=== PATIENT | male | born 1940 | race African-American/Black ===

== ENCOUNTER 2019-04-09 20:01 | Emergency (ER) | payer OTHER ==
[~2019-04-09] VITALS: Ht 188 cm; Wt 89.8 kg
[~2019-04-09 20:01] MED LIST: CAPSAICIN; ENALAPRIL MALEA10 MG PO; FELODIPINE5 M1 PO; FINASTERIDE5 M1 PO; FLO4 PO; GLUCOSE PO; GOOD SENSE ASPI81 M3 PO; HUMULIN U SC; HYDROCHLOROTHIA25 MG PO; LIPITOR40 MG PO; LYRICA100 M1 PO; TUMS REGULAR S500 MG CH; [UNRECOGNIZED DRUG - OTHER] SC
[2019-04-09 20:21] VITALS: Ht 188 cm; Wt 89.8 kg
[2019-04-09 20:50] LABS: BASOPHIL % 0.1 % (0-2); PLATELET COUNT 216 x10^3mcL (130-400); RED CELL DISTRIBUTION WIDTH 13.1 % (11.5-14.5)
[2019-04-09 20:55] LABS: CALCIUM 8.9 mg/dL (8.5-10.1); CARBON DIOXIDE 31.3 mmol/L (21-32); CHLORIDE SERUM 104 mmol/L (98-107); CREATININE SERUM 1.2 mg/dL (0.7-1.3); GLUCOSE SERUM 100 mg/dL (74-106); POTASSIUM SERUM 3.9 mmol/L (3.5-5.1); SODIUM SERUM 141 mmol/L (136-145)
[2019-04-09 21:00] LABS: ALBUMIN 3.5 g/dL (3.4-5.0); ALKALINE PHOSPHATASE 83 U/L (46-116); ALT/SGPT 43 U/L (16-63); AST/SGOT 32 U/L (15-37); BILIRUBIN TOTAL 0.5 mg/dL (0.20-1.00); LIPASE 57 IU/L (73-393); TOTAL PROTEIN, SERUM 7.1 g/dL (6.4-8.2)
[2019-04-10 01:31] VITALS: BP 113/68
== END 2019-04-10 01:32 | disposition home or self-care (01) ==
LOC: ED 20:01
PROVIDERS: Emergency Medicine
DX: K52.9 Noninfective gastroenteritis and colitis, unspecified (principal); E11.22 Type 2 diabetes mellitus with diabetic chronic kidney disease; I12.9 Hypertensive chronic kidney disease with stage 1 through stage 4 chronic kidney disease, or unspecified chronic kidney disease; N18.9 Chronic kidney disease, unspecified; F20.9 Schizophrenia, unspecified; Z88.0 Allergy status to penicillin
CPT/HCPCS: J2405; J7030; Q9967